=== PATIENT | female | born 1950 | race Caucasian/White ===

== ENCOUNTER 2016-11-18 13:02 | Observation (INO) | payer MEDICARE, OTHER ==
[~2016-11-18] VITALS: Ht 162.6 cm; Wt 60.9 kg
[2016-11-18] VITALS (10 sets, daily range): BP systolic 100–117; BP diastolic 54–66; PULSE 63–72; TEMP 97.5–98.2
[~2016-11-18 13:02] MED LIST: ASPIRIN 81M81 MG/TA2 PO; RT ADVAIR 528 DISKUS IH; cholesterol med
[2016-11-18] MEDS ORDERED: CEPHALEXIN250 MG/5 M PO (13:35)
[2016-11-18] MEDS ORDERED: OXYCODONE H5 MG/5 ML PO (13:36)
[2016-11-18 13:54] LABS: BASO # 0.1 (0.0-0.2); BASO % 0.4 % (0.0-2.0); EOS % 0.1 % (0-4.0); GRAN # 11.5 (1.4-6.5); HEMATOCRIT 37.5 % (37.0-47.0); HEMOGLOBIN 12.5 g/dl (12.5-16.0); LYMPH % 7.1 % (20.0-51.0); MEAN CELL VOLUME 93 fl (80.0-100.0); MEAN CORPUSCULAR HEMOGLOBIN 31 pg (27.0-31.0); MEAN CORPUSCULAR HGB CONC 33 g/dl (33.0-37.0); MONO # 0.9 (0.1-0.6); MONO % 6.7 % (1.7-9.3); PLATELET COUNT 227 K/mm3 (130-400); RED BLOOD COUNT 4.02 M/mm3 (4.10-5.30); REDCELL DISTRIBUTION WIDTH-CV 12.8 % (11.5-14.5); WHITE BLOOD COUNT 13.5 K/mm3 (4.8-10.8)
[2016-11-18 14:04] LABS: ADJUSTED CALCIUM 8.9 mg/dL (8.4-10.2); ALBUMIN 4.1 gm/dL (3.5-5.0); C-REACTIVE PROTEIN 8.5 mg/dL (0.0-0.9); CREATININE, serum 0.93 mg/dL (0.52-1.25); POTASSIUM 3.8 mmol/L (3.4-5.0)
[2016-11-18 14:15] LABS: ERYTHROCYTE SEDIMENTATION RATE 43 mm/hr (0-30)
[2016-11-19 04:00] VITALS: BP 106/52; PULSE 65; TEMP 98
[2016-11-19 08:21] VITALS: BP 110/63; PULSE 85; TEMP 98.3
== END 2016-11-19 10:43 | disposition home or self-care (01) ==
LOC: COL.ER 13:02 → SURG 15:50
PROVIDERS: Emergency Medicine
DX: K11.21 Acute sialoadenitis (principal); K11.5 Sialolithiasis; K11.7 Disturbances of salivary secretion; M35.00 Sjogren syndrome, unspecified; J45.909 Unspecified asthma, uncomplicated
CPT/HCPCS: G0378; J0330; J1100; J2270; J2405; J2704; J3010; J7030; J7120; Q9967

== ENCOUNTER → 2017-01-17 | Outpatient (CLI) | payer MEDICARE, OTHER ==
[~2017-01-17] MED LIST changes: +CEPHALEXIN250 MG/5 M PO; +OXYCODONE H5 MG/5 ML PO
== END ==
LOC: MC.RAD 14:40
DX: Z12.31 Encounter for screening mammogram for malignant neoplasm of breast (principal); N63.20 Unspecified lump in the left breast, unspecified quadrant

== ENCOUNTER → 2017-01-24 | Outpatient (CLI) | payer MEDICARE, OTHER | LOC: MC.RAD 13:57 | DX: N63.23 Unspecified lump in the left breast, lower outer quadrant (principal) ==

== ENCOUNTER → 2018-03-21 | Outpatient (CLI) | payer MEDICARE, OTHER | LOC: MC.RAD 11:20 | DX: Z12.31 Encounter for screening mammogram for malignant neoplasm of breast (principal) ==

== ENCOUNTER 2018-05-10 08:30 | Outpatient (RCR) | payer MEDICARE, OTHER | END 2018-05-24 11:10 | disposition home or self-care (01) | LOC: WSPT 08:30 | DX: M54.10 Radiculopathy, site unspecified (principal) ==

== ENCOUNTER → 2019-04-16 | Outpatient (CLI) | payer MEDICARE, OTHER | LOC: MC.RAD 12:44 | DX: Z12.31 Encounter for screening mammogram for malignant neoplasm of breast (principal); N63.10 Unspecified lump in the right breast, unspecified quadrant ==

== ENCOUNTER → 2019-04-23 | Outpatient (CLI) | payer MEDICARE, OTHER | LOC: MC.RAD 12:42 | DX: N60.01 Solitary cyst of right breast (principal) ==

== ENCOUNTER → 2019-04-29 | Outpatient (CLI) | payer MEDICARE, OTHER | LOC: MC.RAD 07:57 | DX: N63.10 Unspecified lump in the right breast, unspecified quadrant (principal); Z98.82 Breast implant status ==

== ENCOUNTER → 2020-02-20 | Outpatient (CLI) | payer MEDICARE, OTHER | LOC: COL.VAS 13:43 | DX: R06.02 Shortness of breath (principal) ==

== ENCOUNTER → 2020-04-20 | Outpatient (CLI) | payer MEDICARE, OTHER | LOC: MC.RAD 09:30 | DX: Z12.31 Encounter for screening mammogram for malignant neoplasm of breast (principal) ==

== ENCOUNTER → 2021-07-08 | Outpatient (CLI) | payer MEDICARE, OTHER | LOC: COL.RAD 12:14 | DX: M16.12 Unilateral primary osteoarthritis, left hip (principal) | CPT/HCPCS: J3301; Q9967 ==

== ENCOUNTER 2022-07-28 09:00 | Outpatient (RCR) | payer MEDICARE, OTHER | END 2022-07-30 | disposition home or self-care (01) | LOC: PT.GENESIS | DX: Z98.890 Other specified postprocedural states (principal) ==

== ENCOUNTER 2022-11-28 09:15 | Outpatient (RCR) | payer MEDICARE, OTHER | END 2022-11-30 | disposition home or self-care (01) | LOC: PT.GENESIS | DX: Z98.890 Other specified postprocedural states (principal) ==

== ENCOUNTER 2022-12-19 09:15 | Outpatient (RCR) | payer MEDICARE, OTHER | END 2022-12-29 15:00 | disposition home or self-care (01) | LOC: PT.GENESIS 09:15 | DX: M51.36 Other intervertebral disc degeneration, lumbar region (principal); Z98.890 Other specified postprocedural states ==

== ENCOUNTER → 2023-07-27 | Outpatient (CLI) | payer MEDICARE, OTHER | LOC: MC.RAD 09:56 | DX: Z12.31 Encounter for screening mammogram for malignant neoplasm of breast (principal) ==

== ENCOUNTER 2023-09-25 08:30 | Outpatient (RCR) | payer MEDICARE, OTHER | END 2023-09-30 | disposition home or self-care (01) | LOC: PT.GENESIS | DX: Z98.890 Other specified postprocedural states (principal) ==

== ENCOUNTER 2023-10-30 08:30 | Outpatient (RCR) | payer MEDICARE, OTHER | END 2023-10-31 | disposition home or self-care (01) | LOC: PT.GENESIS | DX: Z98.890 Other specified postprocedural states (principal) ==

== ENCOUNTER 2024-01-30 10:15 | Outpatient (RCR) | payer MEDICARE, OTHER | END 2024-01-31 10:22 | disposition home or self-care (01) | LOC: PT.GENESIS 10:15 | DX: Z96.642 Presence of left artificial hip joint (principal) ==